=== PATIENT | female | born 1990 | race Caucasian/White ===

== ENCOUNTER 2018-01-19 18:17 | Emergency (ER) | payer SELFPAY ==
[2018-01-19] MEDS ORDERED: SULFAMETHOXAZOLE/TRIMETHOPRIM 800-160 MG TABLET PO ONE (18:50)
[2018-01-19] MEDS ORDERED: LIDOCAINE 1% INJ-PF (10 MG/ML) 30 ML SDV INJ ONE (18:50)
[2018-01-19] MEDS ORDERED: CEPHALEXIN 500 MG CAPSULE PO ONE (18:51)
--- NOTE | 2018-01-19 18:53 | ER Document Report ---
ED Skin Rash/Insect Bite/Abscs - General Chief Complaint: Breast Lump Stated Complaint: RIGHT BREAST LUMP Time Seen by Provider: 01/19/18 18:35 Mode of Arrival: Ambulatory Information source: Patient Notes: 27-year-old female presented to ED for complaint of painful breast lump to the right breast just below the nipple. She states this started about a week ago and has progressed to become more painful over the last week. TRAVEL OUTSIDE OF THE [place] IN LAST 30 DAYS: No - HPI Patient complains to provider of: Tender/swollen area - Right breast just below the nipple Onset: Last week Onset/Duration: Gradual, Worse Quality of pain: Sharp, Throbbing Severity: Moderate Pain Level: 2 Skin Character: Abscess Quality of rash: Painful Identify cause: No Exacerbated by: Walking Relieved by: Denies Similar symptoms previously: No Recently seen / treated by doctor: No - Related Data Allergies/Adverse Reactions: No Known Allergies Allergy (Verified 03/14/15 02:06) Past Medical History - General Information source: Patient - Social History Smoking Status: Current Every Day Smoker Cigarette use (# per day): Yes - Pack per day Chew tobacco use (# tins/day): No Smoking Education Provided: Yes - 4 minutes Frequency of alcohol use: Occasional Drug Abuse: Marijuana Occupation: Does not work Lives with: Spouse/Significant other Family History: None - Patient does not know family medical history except for mother Patient has suicidal ideation: No Patient has homicidal ideation: No - Past Medical History Cardiac Medical History: Reports: None Pulmonary Medical History: Reports: None EENT Medical History: Reports: None Neurological Medical History: Reports: None Endocrine Medical History: Reports: None Renal/ Medical History: Reports: None Malignancy Medical History: Reports: None GI Medical History: Reports: None Musculoskeltal Medical History: Reports None Skin Medical History: Reports None Psychiatric Medical History: Reports: None Traumatic Medical History: Reports: None Infectious Medical History: Reports: None Past Surgical History: Reports: Hx Section - x2, Hx Tubal Ligation - Immunizations Immunizations up to date: Yes Hx Diphtheria, Pertussis, Tetanus Vaccination: No Review of Systems - Review of Systems Constitutional: No symptoms reported EENT: No symptoms reported Cardiovascular: No symptoms reported Respiratory: No symptoms reported Gastrointestinal: No symptoms reported Genitourinary: No symptoms reported Female Genitourinary: No symptoms reported Musculoskeletal: No symptoms reported Skin: Other - Right breast abscess just below the nipple approximately 3 cm x 1 cm Hematologic/Lymphatic: No symptoms reported Neurological/Psychological: No symptoms reported -: Yes All other systems reviewed and negative Physical Exam - Vital signs Vitals: Temp Pulse Resp BP Pulse Ox 98.2 F 83 20 135/74 H 98 01/19/18 18:27 01/19/18 18:27 01/19/18 18:27 01/19/18 18:27 01/19/18 18:27 Interpretation: Normal - General General appearance: Appears well, Alert - HEENT Head: Normocephalic, Atraumatic Eyes: Normal Pupils: PERRL - Respiratory Respiratory status: No respiratory distress Chest status: Nontender Breath sounds: Normal Chest palpation: Normal - Cardiovascular Rhythm: Regular Heart sounds: Normal auscultation Murmur: No - Abdominal Inspection: Normal Distension: No distension Bowel sounds: Normal Tenderness: Nontender Organomegaly: No organomegaly - Back Back: Normal, Nontender - Extremities General upper extremity: Normal inspection, Nontender, Normal color, Normal ROM , Normal temperature General lower extremity: Normal inspection, Nontender, Normal color, Normal ROM , Normal temperature, Normal weight bearing. No: Kerline's sign - Neurological Neuro grossly intact: Yes Cognition: Normal Orientation: AAOx4 Kirsty Coma Scale Eye Opening: Spontaneous Rydal Coma Scale Verbal: Oriented Kirsty Coma Scale Motor: Obeys Commands Kirsty Coma Scale Total: 15 Speech: Normal Motor strength normal: LUE, RUE, LLE, RLE Sensory: Normal - Psychological Associated symptoms: Normal affect, Normal mood - Skin Skin Temperature: Warm Skin Moisture: Dry Skin Color: Normal Skin irregularity: Abscess - Right breast just below the nipple approximately 3 cm x 1 cm red raised warm and tender Irregularity with: Swelling, Tenderness, Warmth Course - Re-evaluation Re-evalutation: 01/19/18 19:22 Patient has a abscess to the right breast just below the nipple about 2-3 cm long 1 cm wide that has been there about a week getting progressively more painful and larger. Consulted Dr. Dominguez who stated to try a needle aspiration I &D and given instructions for warm compresses Bactrim and Keflex. If the abscess does not get better or gets worse she is to have a surgical consult. Needle aspirate returned about a half a cc of very thick purulent drainage. Wound culture was sent patient was started on Bactrim and Keflex. Patient was given instructions as per Dr. Dominguez for rise in a sock type of sock put it in the microwave for 45 seconds and then applied to breast for a half an hour 5 times a day for the next 4-5 days and then to clean the breast well and reapply dressings patient verbalized understanding of instructions. She also verbalized understanding that she needs to take the antibiotics until they are completed. Patient was discharged home with a prescription for Keflex and Bactrim. She did receive a dose of both in the emergency room. - Vital Signs Vital signs: Temp Pulse Resp BP Pulse Ox 98.0 F 70 18 129/76 H 99 01/19/18 19:45 01/19/18 19:45 01/19/18 19:45 01/19/18 19:45 01/19/18 19:45 Procedures - Incision and Drainage Right breast Time completed: 19:19 Type: Simple Anesthetic type: 1% Lidocaine mL's of anesthetic: 4 Blade size: Other I&D procedure: Other - surgical scrub Incision Method: Incision made with needle Amount/type of drainage: small amount thick purulent drainage Discharge - Discharge Clinical Impression: Abscess of right breast Condition: Stable Disposition: HOME, SELF-CARE Instructions: Family Physicians / Practices Additional Instructions: ABSCESS: You have an abscess (boil). This a pus-forming infection, usually due to staph. Some boils may be left to drain on their own, but most require lancing. From the time the tender lump first appears, it may be three or four days before the abscess is ready to rula. Local heat and rest help at this stage of treatment. An antibiotic may prevent spread of the infection. Once the abscess is opened, packing may be placed into it. This is done so pus is not sealed inside by premature closure of the cavity. The packing will be removed at your follow-up visit or you may be advised to remove it yourself at home. Sometimes this packing must be replaced a few times during healing. The wound will heal with surprisingly little scar. Depending on the size and location of an abscess, healing can take one to four weeks. You may shower and wash the area around the incision site two or three times a day. Antibiotics may be prescribed, but are usually not necessary after an abscess has been drained. If you develop fever, chills, worsening pain, or increasing swelling in the area, call the doctor or return immediately. POST INCISION AND DRAINAGE: You have had an incision made to allow drainage of an abscess. The incision must remain open so that pus and debris can drain from the wound. If the abscess cavity is large, packing is placed. This keeps the tissues from collapsing and trapping pus inside, while the body shrinks the cavity. The packing may need to be replaced every day or two. The physician will instruct you on the packing. Keep a bulky dressing over the area. Replace it if it becomes saturated with blood or pus. Do not disturb the packing (if present). You may shower and cleanse the area with gentle soap and warm water two or three times a day. Local warmth may be soothing, and may promote faster healing. Return if you develop high fever or chills, or if you note spreading redness, increasing swelling, or increasing tenderness. CEPHALEXIN: The antibiotic you've been prescribed is a member of the cephalosporin class. This type of antibiotic covers a wide variety of infections, including those of the skin, lungs, and urinary tract. It's useful for staph infections. This antibiotic is slightly similar to the penicillin family. In rare cases , a person who is allergic to penicillin will also be allergic to this medication. If you have had a severe allergic reaction to penicillin, and have not taken this antibiotic since that time, notify your doctor. Antibiotics which cover many germs ("broad spectrum" antibiotics) are more likely to cause diarrhea or "yeast" infections. Women prone to vaginal yeast problems may suffer an attack after taking this antibiotic. In infants, oral thrush (white spots "stuck" on the cheek) or yeast diaper rash may result. See your doctor if these problems occur. Call at once if you develop itching, hives , shortness of breath, or lightheadedness. TRIMETHOPRIM-SULFA: You have been given a prescription for trimethoprim-sulfa (TMS, Septra, Bactrim). This is a combination antibiotic of the sulfa class, often used for urinary tract infections, middle ear infections, bronchitis, shigella intestinal infection, and Pneumocystis pneumonia. TMS is usually well-tolerated. Occasional side effects include nausea and decreased appetite. Septra is not recommended for infants less than two months of age. Do not take this medication if you have experienced severe side effects or allergy to sulfa medicine. You should stop this medicine at once and contact your physician if you develop any rash, joint pain, shortness of breath, bruising, or jaundice ( yellow color in the skin), or if you develop any other new or unusual symptoms. Apply warm pack to the breast tissue 5 times a day over the next 4-[address] rice in a sock type the end of the sock put it in the microwave for 45 seconds and then placed on the breast for 30 minutes after you remove the sock cleaned well with soap and water and redress your breasts. This should help the drainage to become softer and expel itself if any more builds up. Please follow-up with your primary doctor or return to the ED for any increase in symptoms. Please do not stop taking her antibiotics till they have been all taken. FOLLOW-UP CARE: Most simple abscesses will not require a follow up visit. If you had packing placed in the abscess, remove it as instructed by the physician. If you have been referred to a physician for follow-up care, call the physicians office for an appointment as you were instructed or within the next two days. If you experience worsening or a significant change in your symptoms, return to the Emergency Department at any time for re-evaluation. Prescriptions: Cephalexin Monohydrate [Keflex 500 mg Capsule] 500 mg PO QID #20 capsule Sulfamethoxazole/Trimethoprim [Septra-Ds 800-160 mg Tablet] 1 tab PO BID #20 tablet Forms: Elevated Blood Pressure, Smoking Cessation Education Referrals: [facility] [Provider Group] - Follow up as needed
[2018-01-19 19:47] VITALS: BP 129/76
== END 2018-01-19 19:45 | disposition home or self-care (01) ==
LOC: ER 18:17
DX: N61.1 Abscess of the breast and nipple (principal); F17.210 Nicotine dependence, cigarettes, uncomplicated; Z71.6 Tobacco abuse counseling
CPT/HCPCS: 99406; 99283; 87070; 87205; 87075; 10060; J3490